=== PATIENT | male | born 1970 | race Caucasian/White ===

== ENCOUNTER 2021-07-18 05:04 | Emergency (ER) | payer SELFPAY ==
[~2021-07-18] VITALS: Ht 172.7 cm; Wt 75.0 kg
--- NOTE | 2021-07-18 05:34 | PHYS DOC ---
Past History Past Medical History: Other Additional Past Medical Histor: hemorhoids, tremors Past Surgical History: Other Additional Past Surgical Histo: left arm and right arm with hardware Alcohol Use: Occasionally Drug Use: Marijuana General Adult EDM: Chief Complaint: ABDOMINAL PAIN HPI: HPI: 51-year-old male presents with right upper quadrant abdominal pain. The patient had pain yesterday after meal but it faded away. He thought it was a gas type pain. Overnight tonight, the patient began to have pain around 930 or 10 PM. It has not subsided and continues to be 8 out of 10. It is a sharp and cramping pain. The pain started less than an hour after eating a meal that included [place] fries. Patient has no history of abdominal surgeries. He has had one episode of vomiting. The patient is in a sobriety program. He has requested nonnarcotic pain medication to start. Review of Systems: Review of Systems: Constitutional: Denies fever or chills Eyes: Denies change in visual acuity HENT: Denies nasal congestion or sore throat Respiratory: Denies cough or shortness of breath Cardiovascular: Denies chest pain or edema GI: Right upper quadrant abdominal pain, nausea, vomiting. : Denies dysuria Musculoskeletal: Denies back pain or joint pain Integument: Denies rash Neurologic: Denies headache, focal weakness or sensory changes Endocrine: Denies polyuria or polydipsia Lymphatic: Denies swollen glands Psychiatric: Denies depression or anxiety Current Medications: Current Meds: Current Medications Medications (Trade) Dose Ordered Sig/Brady Start Time Stop Time Status Last Admin Dose Admin Morphine Sulfate (Morphine 4mg Syringe) 4 mg 1X ONCE 07/18/21 05:30 07/18/21 05:31 UNV Ondansetron HCl (Zofran) 4 mg 1X ONCE 07/18/21 06:00 07/18/21 06:01 Sodium Chloride 1,000 ml @ 1,000 mls/hr 1X ONCE 07/18/21 06:00 07/18/21 06:59 Allergies: Allergies: Allergies Coded Allergies Type Severity Reaction Last Updated Verified No Known Drug Allergies 07/18/21 No Physical Exam: PE: Constitutional: Well developed, well nourished, no acute distress, non-toxic appearance. [] HENT: Normocephalic, atraumatic, bilateral external ears normal, oropharynx moist, no oral exudates, nose normal. [] Eyes: PERRLA, EOMI, conjunctiva normal, no discharge. [] Neck: Normal range of motion, no tenderness, supple, no stridor. [] Cardiovascular: Heart rate regular rhythm, no murmur [] Lungs & Thorax: Bilateral breath sounds clear to auscultation [] Abdomen: Bowel sounds normal, soft, right upper quadrant tenderness with guarding, no masses, no pulsatile masses. [] Skin: Warm, dry, no erythema, no rash. [] Back: No tenderness, no CVA tenderness. [] Extremities: No tenderness, no cyanosis, no clubbing, ROM intact, no edema. [] Neurologic: Alert and oriented X 3, normal motor function, normal sensory function, no focal deficits noted. [] Psychologic: Affect normal, judgement normal, mood anxious. [] Current Patient Data: Vital Signs: Vital Signs Date Time Temp Pulse Resp B/P (MAP) Pulse Ox O2 Delivery O2 Flow Rate FiO2 07/18/21 05:15 98.0 87 20 152/103 (119) Room Air EKG: EKG: [] Radiology/Procedures: Radiology/Procedures: [] Heart Score: C/O Chest Pain: N/A Risk Factors: Risk Factors: DM, Current or recent (<one month) smoker, HTN, HLP, family history of CAD, obesity. Risk Scores: Score 0 - 3: 2.5% MACE over next 6 weeks - Discharge Home Score 4 - 6: 20.3% MACE over next 6 weeks - Admit for Clinical Observation Score 7 - 10: 72.7% MACE over next 6 weeks - Early Invasive Strategies Course & Med Decision Making: Course & Med Decision Making Pertinent Labs and Imaging studies reviewed. (See chart for details) The patient's work-up is pending. I am signing the patient out to the dayshift at 0600. [] Dragon Disclaimer: Veto Disclaimer: This electronic medical record was generated, in whole or in part, using a voice recognition dictation system. Departure Departure: Referrals: VARUN SHUKLA MD (PCP) FELIPE RENEE DO Jul 18, 2021 05:33
[2021-07-18 05:49] LABS: BASO % 0 % (0-3); EOS # 0.4 x10^3/uL (0.0-0.7); EOS % 4 % (0-3); HEMATOCRIT 42.6 % (39.0-53.0); HEMOGLOBIN 14.3 g/dL (13.0-17.5); LYMPH # 2.1 x10^3/uL (1.0-4.8); LYMPH % 21 % (24-48); MEAN CORPUSCULAR HEMOGLOBIN 29 pg (25-35); MEAN CORPUSCULAR HGB CONC 34 g/dL (31-37); MEAN CORPUSCULAR VOLUME 87 fL (79-100); MONO # 1.1 x10^3/uL (0.0-1.1); MONO % 11 % (0-9); NEUT # 6.2 x10^3uL (1.8-7.7); NEUT % 64 % (31-73); PLATELET COUNT 357 x10^3/uL (140-400); RED BLOOD COUNT 4.88 x10^6/uL (4.30-5.70); RED CELL DISTRIBUTION WIDTH 14.3 % (11.5-14.5); WHITE BLOOD COUNT 9.7 x10^3/uL (4.0-11.0)
[2021-07-18 05:59] LABS: CALCIUM 8.5 mg/dL (8.5-10.1); CREATININE 0.9 mg/dL (0.7-1.3); GFR 88.3; POTASSIUM 3.6 mmol/L (3.5-5.1)
[2021-07-18] MEDS ORDERED: IV NORMAL SALINE 1,000ML 1,000 ML IV ONE (06:00)
[2021-07-18] MEDS ORDERED: CONTRAST GIVEN. MC PRN (06:00)
[2021-07-18] MEDS ORDERED: MORPHINE SULFATE 4 MG/ML DISP.SYRIN. IV ONE ×2 (06:00→10:00)
[2021-07-18] MEDS ORDERED: ONDANSETRON PF 4 MG/2 ML VIAL. IVP ONE (06:00)
[2021-07-18] MEDS ORDERED: IOHEXOL 300 MG/ML 75 ML VIAL. IV ONE (06:00)
[2021-07-18] MEDS ORDERED: KETOROLAC 30 MG/ML VIAL. IVP ONE (06:00)
[2021-07-18 06:07] LABS: ALBUMIN 3.4 g/dL (3.4-5.0); ALBUMIN/GLOBULIN RATIO 0.9 (1.0-1.7); TOTAL BILIRUBIN 0.4 mg/dL (0.2-1.0); TOTAL PROTEIN 7.2 g/dL (6.4-8.2)
--- NOTE | 2021-07-18 06:47 | RAD ---
EXAMINATION: CT ABDOMEN+PELVIS W CLINICAL HISTORY: RUQ pain. TECHNIQUE: CT of the abdomen and pelvis was performed using standard technique, scanning from just ab ove the dome of the diaphragm to the symphysis pubis following administration of intravenous contrast . CT Dose Reduction Employed: One or more of the following individualized dose reduction techniques wer e utilized for this examination: 1. Automated exposure control 2. Adjustment of the mA and/or kV ac cording to patient size 3. Use of iterative reconstruction technique. COMPARISON: None FINDINGS: Mild dependent bibasilar subsegmental atelectasis. Mildly dilated gallbladder with several calcified stones in the region of the gallbladder neck. Multi ple small hypoenhancing foci in the liver, incompletely evaluated. Pancreas, spleen, and adrenal glan ds unremarkable. Small bilobed cyst lower pole left kidney. Right kidney unremarkable. Minimally filled urinary bladder suboptimally evaluated. Prostate at upper limits of normal in size. No bowel dilation or definite wall thickening. Predominantly left-sided colonic diverticulosis. Appen derrick within normal limits. Mild arterial atherosclerotic calcification without aneurysm. No evidence of acute osseous abnormality. IMPRESSION: Mildly dilated gallbladder with stones in the region of the gallbladder neck. If there is concern for acute cholecystitis, recommend right upper quadrant ultrasound for further evaluation. Nonspecific hypoenhancing foci in the liver, incompletely evaluated. Electronically signed by: Isaías Hernandez DO (07/18/2021 6:45 AM) [facility]
--- NOTE | 2021-07-18 09:38 | RAD ---
Abdominal ultrasound Limited: Reason for examination: Right upper quadrant pain. The liver appears to be homogeneous and normal in size at 14 cm. Gallbladder is distended at 11.3 cm. Cholelithiasis is present but the wall does not appear to be sig nificantly thickened at 3.2 mm. Pancreas is poorly visualized. No abnormality seen at the inferior vena cava. Right kidney measures 10.6 x 4.6 x 6.0 cm in greatest dimension and shows normal cortical medullary d ifferentiation and good vascular flow with no mass or hydronephrosis evident. IMPRESSION: Distended gallbladder at 11.3 cm with cholelithiasis and minimal wall thickening at 3.2 mm. Electronically signed by: Lisa Aden MD (07/18/2021 9:36 AM) [facility]
[2021-07-18] MEDS ORDERED: PIPERACILLIN/TAZOBACTAM 3.375 GM in IV NORMAL SALINE 50ML 50 ML IV ONE (10:30)
[2021-07-18] MEDS ORDERED: PIPERACILLIN/TAZOBACTAM 3.375 GM VIAL IV ONE (10:57)
[2021-07-18] MEDS ORDERED: IV NORMAL SALINE 50ML 50 ML ONE (10:57)
[2021-07-18 11:10] VITALS: BP 141/93
== END 2021-07-18 13:16 | disposition short-term general hospital (02) ==
LOC: ER 05:04
DX: K80.20 Calculus of gallbladder without cholecystitis without obstruction (principal); R74.01 Elevation of levels of liver transaminase levels
CPT/HCPCS: 36415; 74177; 76705; 80053; 83690; 85025; 85610; 85730; 96361; 96365; 96375; 96376; 99285; J1885; J2270; J2405; J2543; J7030; Q9967